=== PATIENT | female | born 1990 | race African-American/Black ===

== ENCOUNTER 2024-01-18 15:19 | Observation (INO) | payer OTHER ==
--- OUTSIDE RECORDS SUMMARY | 2024-01-18 15:23 | XMS REPORT | Continuity of Care Document ---
Author Name Unknown Address [address] [facility] [address] [place] [address] Organization [facility] Address [address] [facility] [address] [place] [address] Care Team Providers Care Sweatband Shaper Name Role Phone LESIA CARTER JR Primary Care Physician BETZAIDA Trujillo Attending Clinician Unavailable Betzaida Gregorio NP Attending Clinician [phone] TYE SORENSON Attending Clinician Unavailable TYE SORENSON Attending Clinician Unavailable [email or web address]_Kadiyala_S Attending Clinician Unavaila ble [email or web address]_Kadiyala_S Admitting Clinician UnavailBETZAIDA Lara Admitting Clinician Unavailable Payers Payer Name Policy Type Policy Number Effective Date Expirati on Date Source [facility] [employer] BENEFITS MANAGEMENT [id number] 2021 00:00:00 [facility] [id number] 2017 00:00:00 Problems Condition Name Condition Details Condition Category Status Onset Date Resolution Date Last Treatment Date Treating Clinician Comments Source No known active problems No known active problems Disease [facility] Menorrhagi a with regular cycle Menorrhagi a with regular cycle Problem [facility] Anemia due to chronic blood loss Anemia due to chronic blood loss Problem [facility] Tubal ligation status Tubal ligation status Problem Active [facility] Uterine leiomyoma, unspecifie d location Uterine leiomyoma, unspecifie d location Problem Active [facility] Dysmenorrh ea Dysmenorrh ea Problem Active [facility] Allergies, Adverse Reactions, Alerts Allergy Name Allergy Type Status Severity Reaction(s) Onset Date Inactive Date Treating Clinician Comments Source NO KNOWN ALLERGIE S Drug Class Active [facility] Social History Social Habit Start Date Stop Date Quantity Comments Source Sexual orientation [facility] Exposure to SARS-CoV-2 (event) 2021-11-30 00:00:00 2021-12-10 21:07:00 Not sure [facility] Sex Assigned At 1990 00:00:00 1990 00:00:00 [facility] Smoking Status Start Date Stop Date Source Tobacco smoking consumption unknown [facility] Medications Ordered Medication Name Filled Medication Name Start Date Stop Date Current Medication? Ordering Clinician Indication Dosage Frequency Signature (SIG) Comments Components Source ipratropium -albuteroL (DUONEB) 0.5 mg-3 mg(2.5 mg base)/3 mL nebulizer solution 3 mL 2022-03 15:45: 00 01-21 14:42 :00 No 3mL 3 mL, Inhalation , ONCE, 1 dose, [facility] 01/21/23 [facility] 0945[facility] al[facility]ol [facility] mcg/actuati on inhaler 2022-03 00:00: 00 Yes [id number] 2{puff} Inhale 2 Puffs every 4 (four) hours as needed for Wheezing or Shortness of Breath. [facility] ibuprofen 600 mg tablet 2022-03 00:00: 00 Yes [id number] 600mg Take 1 tablet by mouth every 6 (six) hours as needed for Pain (scale 4-6) for up to 30 doses. [facility] ibuprofen (IBU) tablet 800 mg 12-11 02:15: 00 12-11 02:11 :00 No 800mg 800 mg, Oral, ONCE, 1 dose, On 12/10/21 at 2115, DAREN [facility] No known medications 07-10 10:56: 39 No No known medication s [facility] Ferralet 90 Ferralet 90 05-15 00:00: 00 Yes Salvador Luke 1 tablet [facility] Mirena (52 MG) Mirena (52 MG) Yes Salvador Herrerai as directed [facility] Vital Signs Vital Name Observation Time Observation Value Comments S ource Systolic blood pressure 2023-04-12 17:26:00 144 mm[Hg] [facility] Diastolic blood pressure 2023-04-12 17:26:00 97 mm[Hg] [facility] Heart rate 2023-04-12 17:26:00 99 /min [facility] Body temperature 2023-04-12 17:26:00 37 Tessa [facility] Respiratory rate 2023-04-12 17:26:00 16 /min [facility] Body height 2023-04-12 17:26:00 180.3 cm [facility] Body weight 2023-04-12 17:26:00 113.399 kg [facility] BMI 2023-04-12 17:26:00 34.87 kg/m2 [facility] Oxygen saturation in Arterial blood by Pulse oximetry 2023-04-12 17:26:00 100 /min [facility] Heart rate 2023-01-21 14:54:00 110 /min [facility] Respiratory rate 2023-01-21 14:54:00 18 /min [facility] Oxygen saturation in Arterial blood by Pulse oximetry 2023-01-21 14:54:00 99 /min [facility] Body height 2023-01-21 14:22:00 180.3 cm [facility] Body weight 2023-01-21 14:22:00 108.863 kg [facility] BMI 2023-01-21 14:22:00 33.47 kg/m2 [facility] Systolic blood pressure 2023-01-21 14:22:00 143 mm[Hg] [facility] Diastolic blood pressure 2023-01-21 14:22:00 86 mm[Hg] [facility] Body temperature 2023-01-21 14:22:00 37.61 Tessa [facility] Systolic blood pressure 2021-12-11 02:04:00 147 mm[Hg] [facility] Diastolic blood pressure 2021-12-11 02:04:00 94 mm[Hg] [facility] Heart rate 2021-12-11 02:04:00 85 /min [facility] Body temperature 2021-12-11 02:04:00 37.17 Tessa [facility] Respiratory rate 2021-12-11 02:04:00 18 /min [facility] Oxygen saturation in Arterial blood by Pulse oximetry 2021-12-11 02:04:00 98 /min [facility] Procedures Procedure Date / Time Performed Performing Clinicia n Source ASSIGNMENT OF BENEFITS 2023-04-12 17:33:02 Docto r Unassigned, [place] [facility] CONSENT/REFUSAL FOR DIAGNOSIS AND TREATMENT 2023-04-12 17:21:14 Doctor Unassigned, [place] [facility] RAPID STREP SCREEN FOR GROUP A 2023-01-21 14:41:00 Tye Sorenson [facility] RAPID INFLUENZA A/B 2023-01-21 14:41:00 Tye Sorenson [facility] COVID-19 (ID NOW RAPID TESTING) 2023-01-21 14:41:00 Tye Sorenson [facility] NOTICE OF PRIVACY PRACTICES 2023-01-21 14:15:35 Doctor Unassigned, [place] [facility] CONSENT/REFUSAL FOR DIAGNOSIS AND TREATMENT 2023-01-21 14:14:47 Doctor Unassigned, [place] [facility] XR LUMBAR SPINE 3 VW 2021-12-11 02:24:56 Julia Gregorio [facility] POCT TEST 2021-12-11 02:13:00 Betzaida Gregorio [facility] NOTICE OF PRIVACY PRACTICES 2021-12-11 01:56:39 Doctor Unassigned, [place] [facility] CONSENT/REFUSAL FOR DIAGNOSIS AND TREATMENT 2021-12-11 01:56:05 Doctor Unassigned, [place] [facility] Encounters Start Date/Time End Date/Time Encounter Type Admission Type Attending [facility] Care Facility Care Department Encounter ID Source 2021-09-28 11:11:00 Outpatient [facility] [id number] 2021-07-07 09:01:00 Outpatient [facility] [id number] [facility] 2021-05-24 14:37:00 Outpatient [facility] [id number] [facility] 2023-04-12 11:27:00 2023-04-12 12:30:00 Emergency X BETZAIDA GREGORIO [facility] ERT [id number] [facility] 2023-04-12 11:27:00 2023-04-12 12:30:00 Emergency RustamfaisalBetzaida DEJIGNESH [facility] [id number] [facility] 2023-01-21 08:24:00 2023-01-21 10:34:00 Emergency X SORENSONTYE TIMOTHY [facility] ERT [id number] [facility] 2023-01-21 08:24:00 2023-01-21 10:34:00 Emergency Tye Sorenson [facility] [id number] [facility] 2023-01-04 00:00:00 2023-01-04 00:00:00 Outpatient GC_GCBZW_Ka diyala_S PRIV PRIV [id number] [facility] 2022-12-08 00:00:00 2022-12-08 00:00:00 Outpatient GC_GCBZW_Ka diyala_S PRIV PRIV [id number] [facility] 2022-10-22 00:00:00 2022-10-22 00:00:00 Outpatient GC_GCBZW_Ka diyala_S PRIV PRIV [id number] [facility] 2022-10-22 00:00:00 2022-10-22 00:00:00 Outpatient GC_GCBZW_Ka diyala_S PRIV PRIV [id number] [facility] 2022-10-22 00:00:00 2022-10-22 00:00:00 Outpatient GC_GCBZW_Ka diyala_S PRIV PRIV [id number] [facility] 2021-12-10 21:07:00 2021-12-10 22:44:00 Emergency X BETZAIDA GREGORIO ERT [id number] [facility] 2021-12-10 21:07:00 2021-12-10 22:44:00 Emergency Betzaida Gregorio [facility] [id number] [facility] 2018-07-09 11:00:00 2018-07-09 11:00:00 Outpatient [facility] [id number] [facility] 2018-07-03 15:15:00 2018-07-03 15:15:00 Outpatient [facility] [id number] [facility] 2017-07-19 10:30:00 2017-07-19 10:30:00 Outpatient [facility] [id number] [facility] 2017-07-02 14:00:00 2017-07-02 14:00:00 Outpatient [facility] [id number] [facility] Results Test Description Test Time Test Comments Results Result Co mments Source [facility] Notes Date/Time Note Provider Source 2023-04-12 12:30:06 Patient seen by practitioner and deemed non-emergent. Medical screening completed. Pt declined to stay. VSS, A&Ox4, no ataxia noted. [facility] 2023-04-12 11:25:08 Pt c/o low back pain/spasms x1.5 weeks. Took Ibuprofen yesterday. Denies injury/trauma. No loss of bowel/bladder function. Denies urinary complaints. TO Johnson RN [facility]
[2024-01-18 16:07] LABS: Absolute Basophils 0.1 K/uL (0-0.5); Absolute Eosinophils 0.1 K/uL (0-0.5); Absolute Lymphocytes (CBC) 1.8 K/uL (0.7-4.9); Absolute Monocytes 0.4 K/uL (0.1-1.3); Absolute Neutrophil 5.6 K/uL (1.8-8.0); Basophils % 0.9 % (0-1.3); Eosinophils % 1.6 % (0-4.4); Hemoglobin 6.6 g/dL (12.0-15.0); Lymphocytes % 22.5 % (15.3-44.8); MCHC 28.6 g/dL (32.0-36.0); MCV 55.7 fL (80-100); MPV 8.3 fL (7.6-11.3); Monocytes % 4.4 % (3.3-12.3); Neutrophils % 70.6 % (41.7-73.7); Platelets 268 thou/uL (152-406); RBC Red Blood Cell Count 4.13 M/uL (3.86-4.86); Red Cell Distribution Width 19.8 % (12.1-15.2)
[2024-01-18 16:36] LABS: Anion Gap 8.2 mEq/L (5.0-15.0); BUN Blood Urea Nitrogen 11 mg/dL (7-18); Bicarbonate 24 mEq/L (21-32); Glomerular Filtration Rate 89 ml/min (=/>90); Glucose Level 94 mg/dL (74-106); Potassium 3.2 mEq/L (3.5-5.1); Sodium Level 140 mEq/L (136-145); Thyroid Stimulating Hormone 0.674 uIU/mL (0.358-3.740)
[2024-01-18 16:39] LABS: Troponin High Sensitivity < 3.0 pg/mL (<58.9)
--- NOTE | 2024-01-18 16:59 | P.HP ---
Certification for Inpatient Patient admitted to: Observation With expected LOS: <2 Midnights Patient will require the following post-hospital care: None Practitioner: I am a practitioner with admitting privileges, knowledge of patient current condition, hospital course, and medical plan of care. Services: Services provided to patient in accordance with Admission requirements found in Title 42 Section 412.3 of the Code of Federal Regulations Patient History Date of Service: 01/18/24 Reason for admission: Symptomatic Iron deficiency anemia History of Present Illness: Yung Pantoja is a 33 year old female with Pmhx iron deficiency anemia, uterine fibroids, who presents to the ED from PCP office d/t abnormal H/H. She reports symptoms of dizziness, lightheadedness, and heart palpitations all of which she reports is common with her anemia. She reports seeing her doctor because she had diarrhea for two days, her lab work was drawn showing anemia and was recommended to come to the ED. She reports her menstration has started today and her lowest Hgb in the past has been 6.9. While in the ED, H/H 6.6/23.0, K 3.2, and ferritin 2.0. On evaluation, Yung is alert and oriented, in NAD, abdomen negative for tenderness. She denies fever, chills, Chest pain, and SOB. Initial vitals BP 147 / 81; Pulse 74; Resp 17; Temp 98(O); Pulse Ox 99% Yung will be admitted to hospitalist service for transfusion of 2 units PRBC. Allergies No Known Allergies Allergy (Unverified 04/08/17 12:14) - Past Medical/Surgical History -: Iron deficiency anemia -: Uterine fibroids -: section -: Tubal ligation -: Right knee surgery - Family History Family History: Reviewed- Non-Contributory - Social History Smoking Status: Never smoker Alcohol use: Yes CD- Drugs: No Review of Systems Cardiovascular: Palpitations Gastrointestinal: Diarrhea Neurological: Other (Dizziness) Physical Examination - Physical Exam General: Alert, In no apparent distress, Oriented x3 HEENT: Atraumatic, Normocephalic, PERRLA Neck: 2+ carotid pulse no bruit, JVD not distended Respiratory: Clear to auscultation bilaterally, Normal air movement Cardiovascular: No edema, Normal pulses, Regular rate/rhythm, Normal S1 S2 Capillary refill: <2 Seconds Gastrointestinal: Normal bowel sounds, Soft and benign Musculoskeletal: No clubbing Integumentary: No rashes Neurological: Normal speech, Normal tone - Studies Laboratory Data (last 24 hrs) 01/18/24 01/18/24 15:54 15:54 WBC 8.00 Hgb 6.6 L Hct 23.0 L Plt Count 268 Sodium 140 Potassium 3.2 L BUN 11 Creatinine 0.87 Glucose 94 Assessment and Plan - Plan Assessment and plan Symptomatic iron deficiency anemia Dizziness and heart palpations -Ferritin 2,H&H 6.09/07 -2 Units PRBC with lasix -Iron studies pending -Reports iron infusion in the past -Menstration today Hypokalemia -Potassium 3.2 -Expect replacement with 2 units packed red blood cells -monitor in AM labs Uterine fibroids -Continue outpatient follow-up DVT PPx SCDs Full code LOS 24-hour obs Discharge Plan: Home Plan to discharge in: 24 Hours - Advance Directives Does patient have a Living Will: No Does patient have a Durable POA for Healthcare: No
--- NOTE | 2024-01-18 17:13 | ER ---
Nurse's Notes [facility] Name: Yung Pantoja Age: 33 yrs Sex: Female : 1990 Arrival Date: 01/18/2024 Time: 15:19 Bed 13 Private MD: Diagnosis: Acute blood loss anemia - palpitations and dizziness;Chronic OMID;Hypokalemia Presentation: 01/17 16:18 Chief complaint: Patient states: palpitations intermittent since last week, +dizziness. iw Coronavirus screen: At this time, the client does not indicate any symptoms associated with coronavirus-19. Ebola Screen: No symptoms or risks identified at this time. Initial Sepsis Screen: Does the patient meet any 2 criteria? Does the patient have a suspected source of infection? No. Patient's initial sepsis screen is negative. Risk Assessment: Do you want to hurt yourself or someone else? Patient reports no desire to harm self or others. Onset of symptoms was January 10, 2024. 16:18 Method Of Arrival: Ambulatory iw 16:18 Acuity: MIL[place] 3 iw Historical: - Allergies: 16:19 No Known Allergies; iw - PMHx: 16:14 Anemia; Uterine fibroids; snw - PSHx: 16:19 right knee; section; tubal; iw - Immunization history:: Adult Immunizations up to date. - Infectious Disease History:: Denies. - Social history:: Smoking status: Patient denies any tobacco usage or history of. Screenin:30 [facility] ED Fall Risk Assessment (Adult) History of falling in the last 3 months, rs5 including since admission No falls in past 3 months (0 pts) Confusion or Disorientation No (0 pts) Intoxicated or Sedated No (0 pts) Impaired Gait No (0 pts) Mobility Assist Device Used No (0 pt) Altered Elimination No (0 pt) Score/Fall Risk Level 0 - 2 = Low Risk Oriented to surroundings, Maintained a safe environment. Abuse screen: Denies threats or abuse. Nutritional screening: No deficits noted. Tuberculosis screening: No symptoms or risk factors identified. Assessment: 15:30 General: Appears in no apparent distress. uncomfortable, Behavior is calm, cooperative. rs5 Pain: Denies pain. Neuro: Level of Consciousness is awake, alert, obeys commands, Oriented to person, place, time, situation. Cardiovascular: Patient's skin is warm and dry. Respiratory: Airway is patent Respiratory effort is even, unlabored, Respiratory pattern is regular, symmetrical. GI: Abdomen is round non-distended, Abd is soft and non tender X 4 quads. : Reports vaginal bleeding that is light flow. EENT: No signs and/or symptoms were reported regarding the EENT system. Derm: Skin is intact, Skin is pink, warm \T\ dry. Musculoskeletal: Range of motion: intact in all extremities. 16:37 Reassessment: Patient and/or family updated on plan of care and expected duration. Pain rs5 level reassessed. Patient is alert, oriented x 3, equal unlabored respirations, skin warm/dry/pink. 17:48 Reassessment: Patient and/or family updated on plan of care and expected duration. Pain rs5 level reassessed. Patient is alert, oriented x 3, equal unlabored respirations, skin warm/dry/pink. 18:20 Reassessment: Patient and/or family updated on plan of care and expected duration. Pain rs5 level reassessed. Patient is alert, oriented x 3, equal unlabored respirations, skin warm/dry/pink. Vital Signs: 16:18 BP 147 / 81; Pulse 74; Resp 17; Temp 98(O); Pulse Ox 99% ; rs5 17:01 BP 128 / 77; Pulse 74; Resp 17; Pulse Ox 99% on R/A; rs5 18:20 BP 134 / 84; Pulse 70; Resp 17; Pulse Ox 99% on R/A; rs5 ED Course: 15:23 Patient arrived in ED. ra3 15:23 Alexandra Hill [facility]C [facility] snw 15:23 Gilberto Perez MD is Attending Physician. snw 15:30 Patient has correct armband on for positive identification. Placed in gown. Bed in low rs5 position. Call light in reach. Side rails up X2. 15:30 Arm band placed on. iw 15:30 No provider procedures requiring assistance completed. rs5 15:30 Inserted saline lock: 20 gauge in right antecubital area, using aseptic technique. rs5 Blood collected. Flushed with 10 mL NS. 16:03 Fidel Cantrell, ANISH is Primary Nurse. rs5 16:19 Triage completed. iw 17:11 Thai Stubbs is Hospitalizing Provider. snw 18:36 Patient admitted, IV remains in place. iw Administered Medications: No medications were administered Medication: 18:36 VIS not applicable for this client. iw Outcome: 17:12 Decision to Hospitalize by Provider. snw 18:36 Admitted to Med/surg accompanied by nurse, via wheelchair, room 225, iw 18:36 Condition: good 18:36 Discharge instructions given to patient, Instructed on the need for admit, 18:37 Patient left the ED. iw Signatures: Alexandra Hill, SUPERVISOR ESTIMATOR AND DRAFTER-C SUPERVISOR ESTIMATOR AND DRAFTER-Csnw Kath Romero, RN RN iw Fidel Cantrell, RN RN rs5 Bri Chakraborty ra3 Corrections: (The following items were deleted from the chart) 18:20 18:20 BP 128 / 77; Pulse 74bpm; Resp 17bpm; Pulse Ox 99% RA; rs5 rs5
--- NOTE | 2024-01-18 17:13 | EDPHYS ---
Physician Documentation [facility] Name: Yung Pantoja Age: 33 yrs Sex: Female : 1990 Arrival Date: 01/18/2024 Time: 15:19 Bed 13 Private MD: ED Physician Gilberto Perez HPI: 01/17 16:16 This 33 yrs old Black Female presents to ER via Unassigned with complaints of Heart snw palpitations Sent by pcp. 16:16 The patient presents with a history of heart racing. Context: The symptoms occur with snw light activity, sent per Dr. Marisa moreland to anemia. No labs to view at hospital. Onset: The symptoms/episode began/occurred acutely. Duration: The patient or guardian reports multiple episodes. Severity of symptoms: At their worst the symptoms were moderate. The patient has experienced a previous episode. The patient has been recently seen by a physician: the patient's primary care provider, with similar presenting complaints, lab tests were done. sent to ED for anemia. Pt with hx of uterine fibroids, menorrhagia. LMP - started 1-2 days ago. Historical: - Allergies: 16:19 No Known Allergies; iw - PMHx: 16:14 Anemia; Uterine fibroids; snw - PSHx: 16:19 right knee; section; tubal; iw - Immunization history:: Adult Immunizations up to date. - Infectious Disease History:: Denies. - Social history:: Smoking status: Patient denies any tobacco usage or history of. ROS: 16:14 Eyes: Negative for injury, pain, redness, and discharge, ENT: Negative for injury, snw pain, and discharge, Neck: Negative for injury, pain, and swelling, 16:14 Abdomen/GI: Negative for abdominal pain, nausea, vomiting, diarrhea, and constipation, Back: Negative for injury and pain, : Negative for injury, bleeding, discharge, and swelling, MS/Extremity: Negative for injury and deformity, Skin: Negative for injury, rash, and discoloration, 16:14 Constitutional: Positive for fatigue, malaise, 16:14 Cardiovascular: Positive for palpitations, 16:14 Respiratory: Positive for shortness of breath, on exertion. 16:14 Neuro: Positive for dizziness, Exam: 16:12 Constitutional: This is a well developed, well nourished patient who is awake, alert, snw and in no acute distress. Head/Face: Normocephalic, atraumatic. ENT: Nares patent. No nasal discharge, no septal abnormalities noted. Tympanic membranes are normal and external auditory canals are clear. Oropharynx with no redness, swelling, or masses, exudates, or evidence of obstruction, uvula midline. Mucous membranes moist. Neck: Trachea midline, no thyromegaly or masses palpated, and no cervical lymphadenopathy. Supple, full range of motion without nuchal rigidity, or vertebral point tenderness. No Meningismus. Chest/axilla: Normal chest wall appearance and motion. Nontender with no deformity. No lesions are appreciated. Cardiovascular: Regular rate and rhythm with a normal S1 and S2. No gallops, murmurs, or rubs. Normal PMI, no JVD. No pulse deficits. Respiratory: Lungs have equal breath sounds bilaterally, clear to auscultation and percussion. No rales, rhonchi or wheezes noted. No increased work of breathing, no retractions or nasal flaring. Abdomen/GI: Soft, non-tender, with normal bowel sounds. No distension or tympany. No guarding or rebound. No evidence of tenderness throughout. Back: No spinal tenderness. No costovertebral tenderness. Full range of motion. Skin: Warm, dry with normal turgor. Normal color with no rashes, no lesions, and no evidence of cellulitis. MS/ Extremity: Pulses equal, no cyanosis. Neurovascular intact. Full, normal range of motion. Neuro: Awake and alert, GCS 15, oriented to person, place, time, and situation. Cranial nerves II-XII grossly intact. Motor strength 5/5 in all extremities. Sensory grossly intact. Cerebellar exam normal. Normal gait. Psych: Awake, alert, with orientation to person, place and time. Behavior, mood, and affect are within normal limits. 16:12 Eyes: Periorbital structures: mild exopthalmus, Conjunctiva: normal, 16:12 Special observations: EKG, rate 92, NSR, no ectopy, Vital Signs: 16:18 BP 147 / 81; Pulse 74; Resp 17; Temp 98(O); Pulse Ox 99% ; rs5 17:01 BP 128 / 77; Pulse 74; Resp 17; Pulse Ox 99% on R/A; rs5 18:20 BP 134 / 84; Pulse 70; Resp 17; Pulse Ox 99% on R/A; rs5 MDM: 15:24 Medical Screening Exam initiated snw 16:15 Differential diagnosis: arrythmia, dehydration, anemia, hyperthyroidism. Data reviewed: snw vital signs, nurses notes, lab test result(s). I considered the following discharge prescriptions or medication management in the emergency department Medications were administered in the Emergency Department. See MAR. Care significantly affected by the following chronic conditions: anemia. Counseling: I had a detailed discussion with the patient and/or guardian regarding the historical points, exam findings, and any diagnostic results supporting the discharge/admit diagnosis, lab results, radiology results. 16:46 Management of patient was discussed with the following: Hospitalist: would like to snw admit for obs for transfusion. 01/17 15:30 Order name: Basic Metabolic Panel; Complete Time: 16:41 snw 01/17 15:30 Order name: CBC with Diff; Complete Time: 19:17 w 01/17 15:30 Order name: TSH; Complete Time: 16:41 snw 01/17 15:30 Order name: Type And Screen count includes the [facility] 01/17 15:30 Order name: Ferritin; Complete Time: 16:41 snw 01/17 15:30 Order name: Troponin HS; Complete Time: 16:41 snw 01/17 16:33 Order name: Bb Add On w 01/17 16:41 Order name: PRBC count includes the [facility] 01/17 16:44 Order name: ABO/RH typing [facility] 01/17 16:44 Order name: Antibody Screen [facility] 01/17 17:04 Order name: ABO/RH no charge; Complete Time: 17:08 EDDE 01/17 17:15 Order name: Basic Metabolic Panel EDDE 01/17 17:15 Order name: Basic Metabolic Panel EDDE 01/17 17:15 Order name: CBC with Automated Diff EDMS 01/17 17:15 Order name: CBC with Automated Diff EDDE 01/17 17:15 Order name: Magnesium EDDE 01/17 17:15 Order name: Magnesium EDDE 01/17 17:15 Order name: Phosphorus EDDE 01/17 17:15 Order name: Phosphorus EDDE 01/17 17:16 Order name: Packed RBCs (Additional Unit) EDDE 01/17 17:19 Order name: Transferrin Sat/Iron Binding EDMS 01/17 17:19 Order name: Vitamin B12 Level EDMS 01/17 17:19 Order name: Vitamin D, 25 (OH), TOTAL EDMS 01/17 17:19 Order name: Vitamin D, 25 (OH), TOTAL EDMS 01/17 17:53 Order name: CBC Smear Scan; Complete Time: 19:17 EDMS 01/17 15:30 Order name: EKG; Complete Time: 15:30 snw 01/17 15:30 Order name: IV Saline Lock; Complete Time: 17:06 snw 01/17 15:30 Order name: Labs collected and sent; Complete Time: 17:06 snw 01/17 15:30 Order name: Consent for Blood Transfusion; Complete Time: 16:32 snw 01/17 15:30 Order name: IV Saline Lock; Complete Time: 16:32 snw 01/17 15:30 Order name: EKG - Nurse/Tech; Complete Time: 16:31 snw 01/17 15:30 Order name: O2 Per Protocol; Complete Time: 16:30 snw Administered Medications: No medications were administered Disposition Summary: 01/18/24 17:12 Hospitalization Ordered Notes: Hospitalization Status: Observation snw Provider: Thai Stubbs Location: Telemetry/MedSurg (observation) snw Condition: Stable snw Problem: an acute exacerbation snw Symptoms: have improved snw Bed/Room Type: Standard snw Room Assignment: 225(01/18/24 17:51) em1 Diagnosis - Acute blood loss anemia - palpitations and dizziness snw - Chronic OMID snw - Hypokalemia snw Forms: - Medication Reconciliation Form snw - SBAR form snw - Leadership Thank You Letter snw Signatures: Dispatcher [employer] EDMS Alexandra Hill, PLATE FINISHER-C PLATE FINISHER-Csnw Kath Romero, ANISH RN iw Maverick Gracia em1 Fidel Cantrell RN RN rs5 Corrections: (The following items were deleted from the chart) 15:31 15:30 BASIC METABOLIC PANEL+C.LAB.BRZ ordered. EDMS EDMS 15:31 15:30 CBC+H.LAB.BRZ ordered. EDMS EDMS 15:31 15:30 THYROID STIMULAT HORMONE+C.LAB.BRZ ordered. EDMS EDMS 15:31 15:30 TYPE AND SCREEN+BB.LAB.BRZ ordered. EDMS EDMS 15: 15:30 FERRITIN+C.LAB.BRZ ordered. EDMS EDMS 15:30 FERRITIN+C.LAB.BRZ ordered. EDMS EDMS 15:30 Troponin High Sensitivity+C.LAB.BRZ ordered. EDMS EDMS 17:27 17:12 snw iw 17:51 17:27 201 em1
[2024-01-18 17:51] LABS: Platelet Estimate ADEQ; White Blood Cell Scan OK (OK)
[2024-01-18 17:52] LABS: Anisocytosis 2+; Blood Morphology Comment NOTED (NOT SEEN); Poikilocytosis 2+
[2024-01-18 18:40] VITALS: O2SAT 99
[2024-01-18] MEDS: ACETAMINOPHEN 325 MG TABLET PO PRN (19:47)
[2024-01-18] MEDS: NA CHLORIDE 0.9% 1,000 ML IV SCH (19:47)
[2024-01-18] MEDS ORDERED: WATER FOR INJ,STERILE 10 ML ONE (21:53)
[2024-01-18] MEDS ORDERED: NA CHLORIDE 0.9% 250 ML ONE (21:54)
[2024-01-18] MEDS: HYDROCORTISONE SUC 100 MG INJ IV ONE (22:04)
[2024-01-18 22:21] VITALS: BMI 34.6
[2024-01-18] MEDS: IBUPROFEN 400 MG TAB PO ONE (23:32)
[2024-01-19] MEDS: FUROSEMIDE 20 MG/ 2ML VIAL ONE (01:43)
[2024-01-19] MEDS ORDERED: NA CHLORIDE 0.9% 250 ML ONE (01:43)
[2024-01-19] MEDS: FUROSEMIDE 20 MG/ 2ML VIAL IV ONE (01:54)
[2024-01-19 03:42] VITALS: BP 112/62; TEMP 97.2
[2024-01-19 09:37] LABS: Absolute Eosinophils 0.1 K/uL (0-0.5); Absolute Lymphocytes (CBC) 1.6 K/uL (0.7-4.9); Absolute Monocytes 0.4 K/uL (0.1-1.3); Absolute Neutrophil 5.5 K/uL (1.8-8.0); Basophils % 0.6 % (0-1.3); Eosinophils % 0.9 % (0-4.4); Hemoglobin 8.6 g/dL (12.0-15.0); MCH 18.8 pg (27.0-35.0); MCHC 30.8 g/dL (32.0-36.0); MCV 61.2 fL (80-100); MPV 8.5 fL (7.6-11.3); Monocytes % 5.8 % (3.3-12.3); Neutrophils % 71.7 % (41.7-73.7); Nucleated Red Blood Cells % 0.1 % (0-0); Platelets 254 thou/uL (152-406); RBC Red Blood Cell Count 4.58 M/uL (3.86-4.86); Red Cell Distribution Width 26.8 % (12.1-15.2)
[2024-01-19 09:52] LABS: Anion Gap 9.4 mEq/L (5.0-15.0); Magnesium 1.8 mg/dL (1.6-2.4); Phosphorus 2.6 mg/dL (2.5-4.9); Potassium 3.4 mEq/L (3.5-5.1)
--- NOTE | 2024-01-19 11:02 | P.DS ---
Admission Date: 01/18/24 Discharge Date: 01/19/24 Disposition: ROUTINE DISCHARGE Discharge Condition: GOOD Reason for Admission: Symptomatic Iron deficiency anemia Brief History of Present Illness: Diagnosis Symptomatic iron deficiency anemia Dizziness and heart palpations Hypokalemia Uterine fibroids HPI 01/19/2024 Yung Pantoja is a 33 year old female with Pmhx iron deficiency anemia, uterine fibroids, who presents to the ED from PCP office d/t abnormal H/H. She reports symptoms of dizziness, lightheadedness, and heart palpitations all of which she reports is common with her anemia. She reports seeing her doctor because she had diarrhea for two days, her lab work was drawn showing anemia and was recommended to come to the ED. She reports her menstration has started today and her lowest Hgb in the past has been 6.9. While in the ED, H/H 6.6/23.0, K 3.2, and ferritin 2.0. On evaluation, Yung is alert and oriented, in NAD, abdomen negative for tenderness. She denies fever, chills, Chest pain, and SOB. Initial vitals BP 147 / 81; Pulse 74; Resp 17; Temp 98(O); Pulse Ox 99% Yung will be admitted to hospitalist service for transfusion of 2 units PRBC. Hospital Course: Yung Pantoja is a pleasant 33 year old female with a past medical history significant for iron deficiency anemia and uterine fibroids who was admitted to the [facility] on 01/18/24 for Symptomatic OMID. Yung presented to the ED from the PCP office because of a drop in her H/H. Evaluation in the ED, H/H 6.6/23.0. She had reported the lowest hemoglobin she has had is 6.9. She has never required a blood transfusion but has been given iron infusions. 2 units packed red blood cells ordered and admission to the hospital for blood transfusion initiated. She reports starting her menstrual cycle yesterday (01/17). This morning (01/18), she reports dizziness and lightheadedness has resolved. She is ambulating independently with stability, hemodynamically stable, H/H 8.6/28.0, and tolerating p.o. diet. Evaluation of her iron level indicates iron deficiency anemia and she can continue iron p.o. outpatient with close management with her legal clerk. On 01/19/24, Yung was seen on morning rounds and deemed medically stable for discharge. Yung was discharged with instructions to schedule follow-up appointments with PCP and BELT LOOP CUTTER. Yung was provided prescriptions for iron. Physical Exam General: Alert and Oriented x3, NAD, conversing well HEENT: Atraumatic, Normocephalic, PERRLA Neck: 2+ carotid pulse no bruit, JVD not distended Respiratory: Clear to auscultation bilaterally, Normal air movement Cardiovascular: No edema, Normal pulses, RRR, Normal S1 S2 Capillary refill: <2 Seconds Gastrointestinal: Normal bowel sounds, Soft and benign on palpation, nondistended Musculoskeletal: No clubbing Integumentary: No rashes Neurological: Normal speech, Normal tone Vital Signs/Physical Exam: Temp Pulse Resp BP Pulse Ox 97.2 F 82 16 112/62 99 01/19/24 03:41 01/19/24 03:41 01/19/24 03:41 01/19/24 03:41 01/19/24 03:41 Laboratory Data at Discharge: WBC 7.70 thou/uL (4.3-10.9) 01/19/24 09:30 Hgb 8.6 g/dL (12.0-15.0) L D 01/19/24 09:30 Hct 28.0 % (36.0-45.0) L 01/19/24 09:30 Plt Count 254 thou/uL (152-406) 01/19/24 09:30 Sodium 139 mEq/L (136-145) 01/19/24 09:30 Potassium 3.4 mEq/L (3.5-5.1) L 01/19/24 09:30 BUN 13 mg/dL (7-18) 01/19/24 09:30 Creatinine 0.83 mg/dL (0.55-1.02) 01/19/24 09:30 Glucose 126 mg/dL (74-106) H 01/19/24 09:30 Phosphorus 2.6 mg/dL (2.5-4.9) 01/19/24 09:30 Magnesium 1.8 mg/dL (1.6-2.4) 01/19/24 09:30 Home Medications: Ferrous Sulfate 325 mg PO DAILY 30 Days #30 tab 01/19/24 New Medications: Ferrous Sulfate 325 mg PO DAILY 30 Days #30 tab Physician Discharge Instructions: 1. Please call and schedule a follow-up appointment with your PCP in 3-5 days - Please follow-up with your PCP for medication refills/adjustments -Status post 2 units PRBC with H&H 8.6/28.0 -Iron 17, saturation 4, ferritin 2 2. Please call and schedule a follow-up appointment with your legal clerk in 3- 5 days 3. Continue regular diet 4. activity restrictions 5. Return to the ED if symptoms worsen New medications Ferrous sulfate 325 mg p.o. daily Diet: Regular Activity: Ad ephraim Followup: Warren Cunningham MD [Primary Care Provider] -
--- NOTE | 2024-01-20 12:16 | EKG ---
Test Date: 2024-01-18 Test Time: 15:40:40 Architectural Sales Consultant: CARL MEASUREMENT RESULTS: Intervals: Rate: 92 DC: 128 QRSD: 80 QT: 372 QTc: 460 [place]: P: 59 DC: 128 QRS: 53 T: 30 INTERPRETIVE STATEMENTS: Normal sinus rhythm Normal ECG No previous ECG available for comparison Electronically Signed On 01-20-24 12:13:40 BEDSPREAD SEAMER by Elijah Guevara
== END 2024-01-19 12:32 | disposition home or self-care (01) ==
LOC: ER 15:19 → ERHOLD 17:10 → 2ND 17:51
PROVIDERS: ADMIT Internal Medicine; ATTEND Internal Medicine
PROC: 30233N1 Transfusion of Nonautologous Red Blood Cells into Peripheral Vein, Percutaneous Approach (ICD-10-PCS; principal; 2024-01-19)
DX: D50.9 Iron deficiency anemia, unspecified (principal); D25.9 Leiomyoma of uterus, unspecified; R19.7 Diarrhea, unspecified; R42 Dizziness and giddiness; R00.2 Palpitations; E87.6 Hypokalemia
CPT/HCPCS: 85025 ×2; 80048 ×2; 36415 ×2; 86900; 83735; 86850; 84100; 86901; 86920 ×2; 84443; 84484; 82728; 82607; 83540; 82306; 84466; 99285; 36430; J1940; J1720; P9016 ×2; J7050 ×2; J7030; 93005; G0378

== ENCOUNTER 2024-11-03 19:52 | Emergency (ER) | payer OTHER, SELFPAY ==
--- OUTSIDE RECORDS SUMMARY | 2024-11-03 19:56 | XMS REPORT | Continuity of Care Document ---
Author Name Unknown Address [address] [place] [address] [facility] [place] Address [address] [place] [address] Care Team Providers Care Interface Developer Name Role Phone Warren Cunningham Jr. Primary Care Physician [phone] Warren Cunningham Jr. Attending Clinician [phone] BETZAIDA JERONIMO Attending Clinician Unavailable Betzaida Jeronimo NP Attending Clinician [phone] TYE SORENSON Attending Clinician Unavailable TYE SORENSON Attending Clinician Unavailable [email or web address] Attending Clinician Unavailfox perea [email or web address] Admitting Clinician UnavailBETZAIDA Lara Admitting Clinician Unavailable Payers Payer Name Policy Type Policy Number Effective Date Expirati on Date Source [facility] [place] [employer] [id number] 2021 00:00:00 [facility] [id number] 2017 00:00:00 Problems Condition Name Condition Details Condition Category Status Onset Date Resolution Date Last Treatment Date Treating Clinician Comments Source No known active problems No known active problems Disease [facility] Menorrhagi a with regular cycle Menorrhagi a with regular cycle Problem Active [facility] Anemia due to chronic blood loss Anemia due to chronic blood loss Problem Active [facility] Tubal ligation status Tubal ligation status Problem Active [facility] Uterine leiomyoma, unspecifie d location Uterine leiomyoma, unspecifie d location Problem Active [facility] Dysmenorrh ea Dysmenorrh ea Problem Active [facility] Allergies, Adverse Reactions, Alerts Allergy Name Allergy Type Status Severity Reaction(s) Onset Date Inactive Date Treating Clinician Comments Source NO KNOWN ALLERGIE S Drug Class Active [facility] Social History Social Habit Start Date Stop Date Quantity Comments Source [facility] Possible [facility] Exposure to SARS-CoV-2 (event) 2021-11-30 00:00:00 2021-12-10 21:07:[address] [facility] Sex assigned at 1990 00:00:00 1990 00:00:[address] [facility] Smoking Status Start Date Stop Date Source Tobacco smoking consumption unknown [facility] Medications Ordered Medication Name Filled Medication Name Start Date Stop Date Current Medication? Ordering Clinician Indication Dosage Frequency Signature (SIG) Comments Components Source ipratropium -albuteroL (DUONEB) 0.5 mg-3 mg(2.5 mg base)/3 mL nebulizer solution 3 mL 2022-03 15:45: 00 01-21 14:42 :00 No 3mL 3 mL, Inhalation , ONCE, 1 dose, On Sat01/21/23 at 0945, DAREN [facility] albuterol 90 mcg/actuati on inhaler 2022-03 00:00: 00 Yes [id number] 2{puff} Inhale 2 Puffs every 4 (four) hours as needed for Wheezing or Shortness of Breath. [facility] ibuprofen 600 mg tablet 2022-03 00:00: 00 Yes [id number] 600mg Take 1 tablet by mouth every 6 (six) hours as needed for Pain (scale 4-6) for up to 30 doses. [facility] ibuprofen (IBU) tablet 800 mg 12-11 02:15: 00 12-11 02:11 :00 No 800mg 800 mg, Oral, ONCE, 1 dose, On 12/10/21 at 2115, DAREN [facility] No known medications 07-10 10:56: 39 No No known medication s [facility] Ferralet 90 Ferralet 90 05-15 00:00: 00 Yes Salvador Luke 1 tablet [facility] Mirena (52 MG) Mirena (52 MG) Yes Salvador Herrerai as directed [facility] Vital Signs Vital Name Observation Time Observation Value Comments S ource Systolic blood pressure 2023-04-12 17:26:00 144 mm[Hg] [facility] Diastolic blood pressure 2023-04-12 17:26:00 97 mm[Hg] [facility] Heart rate 2023-04-12 17:26:00 99 /min [facility] Body temperature 2023-04-12 17:26:[address] [facility] Respiratory rate 2023-04-12 17:26:00 16 /min [facility] Body height 2023-04-12 17:26:00 180.3 cm [facility] Body weight 2023-04-12 17:26:00 113.399 kg [facility] BMI 2023-04-12 17:26:00 34.87 kg/m2 [facility] Oxygen saturation in Arterial blood by Pulse oximetry 2023-04-12 17:26:00 100 /min [facility] Oxygen saturation in Arterial blood by Pulse oximetry 2023-01-21 14:54:00 99 /min [facility] Heart rate 2023-01-21 14:54:00 110 /min [facility] Respiratory rate 2023-01-21 14:54:00 18 /min [facility] Systolic blood pressure 2023-01-21 14:22:00 143 mm[Hg] [facility] Diastolic blood pressure 2023-01-21 14:22:00 86 mm[Hg] [facility] Body temperature 2023-01-21 14:22:[address] [facility] Body height 2023-01-21 14:22:00 180.3 cm [facility] Body weight 2023-01-21 14:22:00 108.863 kg [facility] BMI 2023-01-21 14:22:00 33.47 kg/m2 [facility] Systolic blood pressure 2021-12-11 02:04:00 147 mm[Hg] [facility] Diastolic blood pressure 2021-12-11 02:04:00 94 mm[Hg] [facility] Heart rate 2021-12-11 02:04:00 85 /min [facility] Body temperature 2021-12-11 02:04:00 37.17 [facility] Respiratory rate 2021-12-11 02:04:00 18 /min [facility] Oxygen saturation in Arterial blood by Pulse oximetry 2021-12-11 02:04:00 98 /min [facility] Procedures Procedure Date / Time Performed Performing Clinicia n Source ASSIGNMENT OF BENEFITS 2023-04-12 17:33:02 Docto r Unassigned, [place] [facility] CONSENT/REFUSAL FOR DIAGNOSIS AND TREATMENT 2023-04-12 17:21:14 Doctor Unassigned, [place] [facility] RAPID STREP SCREEN FOR GROUP A 2023-01-21 14:41:[address] [facility] RAPID INFLUENZA A/B 2023-01-21 14:41:[address] [facility] COVID-19 (ID NOW RAPID TESTING) 2023-01-21 14:41:[address] [facility] NOTICE OF PRIVACY PRACTICES 2023-01-21 14:15:35 Doctor Unassigned, [place] [facility] CONSENT/REFUSAL FOR DIAGNOSIS AND TREATMENT 2023-01-21 14:14:47 Doctor Unassigned, [place] [facility] XR LUMBAR SPINE 3 VW 2021-12-11 02:24:[address] [facility] POCT TEST 2021-12-11 02:13:[address] [facility] NOTICE OF PRIVACY PRACTICES 2021-12-11 01:56:39 Doctor Unassigned, [place] [facility] CONSENT/REFUSAL FOR DIAGNOSIS AND TREATMENT 2021-12-11 01:56:05 Doctor Unassigned, [place] [facility] Encounters Start Date/Time End Date/Time Encounter Type Admission Type Attending [facility] Care Department Encounter ID Source 2024-06-03 15:12:00 Outpatient [facility] [id number] [facility] 2024-04-21 13:01:00 Outpatient [facility] [id number] [facility] 2021-09-28 11:11:00 Outpatient [facility] [id number] [facility] 2021-07-07 09:01:00 Outpatient [facility] [id number] [facility] 2021-05-24 14:37:00 Outpatient [facility] [id number] [facility] 2024-11-03 00:00:00 2024-11-03 09:01:49 Letter (Out) Warren Cunningham [facility] [id number] [facility] 2023-04-12 11:27:00 2023-04-12 12:30:00 Emergency X BETZAIDA JERONIMO [facility] ERT [id number] [facility] 2023-04-12 11:27:00 2023-04-12 12:30:00 Emergency Betzaida Jeronimo [facility] [id number] [facility] 2023-01-21 08:24:00 2023-01-21 10:34:00 Emergency X TYE SORENSON TIMOTHY [facility] ERT [id number] [facility] 2023-01-21 08:24:00 2023-01-21 10:34:00 Emergency Tye Sorenson [facility] [id number] [facility] 2021-12-10 21:07:00 2021-12-10 22:44:00 Emergency X BETZAIDA JERONIMO [facility] ERT [id number] [facility] 2021-12-10 21:07:00 2021-12-10 22:44:00 Emergency Betzaida Jeronimo [facility] [id number] [facility] 2018-07-09 11:00:00 2018-07-09 11:00:00 [facility] [id number] [facility] 2018-07-03 15:15:00 2018-07-03 15:15:00 [facility] [id number] [facility] 2017-07-19 10:30:00 2017-07-19 10:30:00 Outpatient [facility] [id number] [facility] 2017-07-02 14:00:00 2017-07-02 14:00:00 [facility] [id number] [facility] Results Test Description Test Time Test Comments Results Result Co mments Source [facility] Notes Date/Time Note Provider Source 2023-04-12 12:30:06 Patient seen by practitioner and deemed non-emergent. Medical screening completed. Pt declined to stay. VSS, A&Ox4, no ataxia noted. GER CARDIOVASCULAR [facility] 2023-04-12 11:25:08 Pt c/o low back pain/spasms x1.5 weeks. Took Ibuprofen yesterday. Denies injury/trauma. No loss of bowel/bladder function. Denies urinary complaints. TO Johnson RN [facility]
[2024-11-03 20:28] LABS: Absolute Lymphocytes (CBC) 2.0 K/uL (0.7-4.9)
[2024-11-03 20:34] LABS: Hematocrit 19.9 % (36.0-45.0); MCH 15.0 pg (27.0-35.0); MCHC 28.9 g/dL (32.0-36.0); MCV 52.0 fL (80-100); MPV 8.5 fL (7.6-11.3); Nucleated RBC Absolute Count 0.0 (0-0); Nucleated Red Blood Cells % 0.0 % (0-0); RBC Red Blood Cell Count 3.82 M/uL (3.86-4.86); White Blood Count 7.00 thou/uL (4.3-10.9)
[2024-11-03 20:37] LABS: Hemoglobin 5.7 g/dL (12.0-15.0)
[2024-11-03 20:43] LABS: Anion Gap 8.9 mEq/L (5.0-15.0); BUN Blood Urea Nitrogen 8.0 mg/dL (7-18); Glucose Level 112.0 mg/dL (74-106); Potassium 2.9 mEq/L (3.5-5.1)
[2024-11-03] MEDS ORDERED: POTASSIUM 25 MEQ EFFERV TAB ONE (20:59)
[2024-11-03] MEDS ORDERED: NA CHLORIDE 0.9% 250 ML ONE ×2 (21:15→23:48)
[2024-11-03 21:22] LABS: White Blood Cell Scan OK (OK)
[2024-11-03 21:23] LABS: Anisocytosis 1+; Blood Morphology Comment NOTED (NOT SEEN); Hypochromasia 3+; Microcytosis 3+; Poikilocytosis 1+
[2024-11-03 21:24] LABS: Ovalocytes SLIGHT; Teardrop Cell FEW
--- NOTE | 2024-11-04 02:00 | EDPHYS ---
Physician Documentation [facility] Name: Yung Pantoja Age: 34 yrs Sex: Female : 1990 Arrival Date: 11/03/2024 Time: 19:52 Bed IW9 Private MD: Warren Cunningham ED Physician Umer Aden HPI: 11/03 22:46 This 34 yrs old Black Female presents to ER via Ambulatory with complaints of Abnormal kb Lab Results. 22:46 Pt is a 34 year old female who presents for low hemoglobin. States she has heavy kb periods due to fibroids and has had to have multiple blood transfusions in the past. Patient had labs done by Dr. Pereira yesterday and her hemoglobin was 5.8. Dr. Cunningham and called her and told her to come to the ER for evaluation and transfusion. States she just got a referral to a wooden box maker from him so that she can go and start the process to have a hysterectomy.. VP RESPIRATORY: 20:08 LMP 11/01/2024, unknown me1 Historical: - Allergies: 20:08 No Known Allergies; me1 - PMHx: 20:08 Anemia; uterine fibroids; me1 - PSHx: 20:08 section; right knee; Ligation of fallopian tube; me1 - Immunization history:: Adult Immunizations up to date. - Infectious Disease History:: Denies. - Social history:: Smoking status: Patient reports the use of cigarette tobacco products, denies chronic smoking, but will smoke occasionally. ROS: 22:46 Constitutional: As per HPI kb Exam: 22:46 Constitutional: This is a well developed, well nourished patient who is awake, alert, kb and in no acute distress. Head/Face: Normocephalic, atraumatic. ENT: Moist Mucous membranes Cardiovascular: Regular rate Respiratory: Respirations even and unlabored. No increased work of breathing. Talking in full sentences Abdomen/GI: Soft, non-tender. No distention Skin: Warm, dry with normal turgor. Normal color. MS/ Extremity: Pulses equal, no cyanosis. Neurovascular intact. Full, normal range of motion. Neuro: Awake and alert, GCS 15, oriented to person, place, time, and situation. Vital Signs: 20:05 BP 142 / 75; Pulse 90; Resp 18; Temp 98.3; Pulse Ox 100% ; Weight 116.12 kg; Height 5 me1 ft. 11 in. ; Pain 0/10; 20:30 BP 125 / 66; Pulse 89; Resp 16; Pulse Ox 100% ; me1 21:00 BP 117 / 61; Pulse 85; Resp 16; Pulse Ox 100% ; me1 22:00 BP 115 / 59; Pulse 90; Resp 17; Pulse Ox 100% ; me1 22:49 BP 121 / 68; Pulse 77; Resp 18; Pulse Ox 99% on R/A; Pain 0/10; tb4 11/04 00:15 BP 121 / 64; Pulse 86; Resp 19; Temp 97.9(O); Pulse Ox 100% on R/A; Pain 0/10; tb4 01:00 BP 118 / 65; Pulse 83; Resp 18; Temp 97.7(O); Pulse Ox 100% on R/A; Pain 0/10; tb4 02:10 BP 114 / 60; Pulse 86; Resp 19; Temp 97.5(O); Pulse Ox 100% on R/A; Pain 0/10; tb4 03:10 BP 124 / 65; Pulse 91; Resp 18; Temp 98.2; Pulse Ox 100% on R/A; Pain 0/10; tb4 04:00 BP 119 / 56; Pulse 86; Resp 19; Temp 97.4(O); Pulse Ox 100% on R/A; tb4 11/03 20:05 Body Mass Index 35.70 (116.12 kg, 180.34 cm) md1 11/03 20:05 Pain Scale: Adult md1 22:49 Pain Scale: Adult tb4 11/04 00:15 Pain Scale: Adult tb4 01:00 Pain Scale: Adult tb4 02:10 Pain Scale: Adult tb4 03:10 Pain Scale: Adult tb4 MDM: 11/03 19:57 Medical Screening Exam initiated kb 23:33 Data reviewed: vital signs, nurses notes. kb 23:33 Differential diagnosis: anemia, abnormal electrolytes, dehydration. Consideration of kb Admission/Observation Escalation of care including admission/observation considered. admission considered but pt has history of heavy periods and has had to have blood transfusions in the past for similar symptoms. Pt has plan for outpatient follow up. . Counseling: I had a detailed discussion with the patient and/or guardian regarding the historical points, exam findings, and any diagnostic results supporting the discharge/admit diagnosis, lab results, the need for outpatient follow up, an OB/Gyne specialist, to return to the emergency department if symptoms worsen or persist or if there are any questions or concerns that arise at home. 11/03 20:02 Order name: CBC with Diff; Complete Time: 21:25 kb 11/03 20:02 Order name: BMP; Complete Time: 20:53 kb 11/03 20:02 Order name: Type And Screen kb 11/03 20:51 Order name: Packed RBC Leukored [facility] 11/03 21:24 Order name: CBC Smear Scan; Complete Time: 21:25 [facility] 11/03 22:11 Order name: Antibody Identification [facility] 11/03 22:53 Order name: Antigen type [facility] 11/03 20:02 Order name: IV Start; Complete Time: 20:22 kb Administered Medications: 21:01 Drug: Potassium PO Effervescent Tablet 50 mEq PO once; dissolve in 4 ounces of water or me1 juice Route: PO; 23:18 Follow up: Response: No adverse reaction tb4 Disposition: 11/04 01:34 Co-signature as Attending Physician, Umer Aden MD I agree with the assessment sp4 and plan of care. I reviewed the patient's care provided by the Advanced Practice Provider and agree with the diagnosis and treatment plan. Disposition Summary: 11/04/24 01:59 Discharge Ordered Notes: Location: Home kb Condition: Stable kb Diagnosis - Anemia, unspecified kb Followup: kb - With: Emergency Department - When: As needed - Reason: Worsening of condition Followup: kb - With: Private Physician - When: 2 - 3 days - Reason: Recheck today's complaints, Continuance of care, Re-evaluation by your physician Discharge Instructions: - Discharge Summary Sheet kb - Anemia kb - Blood Transfusion, Adult, Care After, [id number] kb Forms: - Medication Reconciliation Form kb - Antibiotic Education kb - Prescription Opioid Use kb - Patient Portal Instructions kb - Leadership Thank You Letter kb Critical care time excluding procedures: 01:42 Critical care time: Bedside Care: 16 minutes, Consultation: 15 minutes. Total time: 31 kb minutes Signatures: Dispatcher [employer] [facility] Peggy Zamudio FNP-C FNP-Ckb Potepalov, Sergey, MD MD sp4 Ivania Miller RN RN me1 Lulú Stanley RN tb4 Corrections: (The following items were deleted from the chart) 11/03 20:08 20:08 PSHx: tubal; me1 me1
--- NOTE | 2024-11-04 02:00 | ER ---
Nurse's Notes [facility] Name: Yung Pantoja Age: 34 yrs Sex: Female : 1990 Arrival Date: 11/03/2024 Time: 19:52 Bed IW9 Private MD: Warren Cunningham Diagnosis: Anemia, unspecified Presentation: 11/03 20:05 Chief complaint: Patient states: sent by Dr Cunningham for hgb of 5.6 yesterday. Reports me1 she has fibroids and heavy periods causing her anemia. Coronavirus screen: Vaccine status: Patient reports receiving the 2nd dose of the covid vaccine. Ebola Screen: No symptoms or risks identified at this time. Initial Sepsis Screen: Does the patient meet any 2 criteria? HR > 90 bpm. No. Patient's initial sepsis screen is negative. Does the patient have a suspected source of infection? No. Patient's initial sepsis screen is negative. Risk Assessment: Do you want to hurt yourself or someone else? Patient reports no desire to harm self or others. Onset of symptoms is unknown. 20:05 Method Of Arrival: Ambulatory [facility] 20:05 Acuity: [place] 3 me1 Triage Assessment: 20:08 General: Appears in no apparent distress. well groomed, well developed, well nourished, me1 Behavior is calm, cooperative, appropriate for age. Pain: Denies pain. EENT: No signs and/or symptoms were reported regarding the EENT system. Neuro: Level of Consciousness is awake, alert, obeys commands, Oriented to person, place, time, situation, Appropriate for age. Cardiovascular: Reports fast heart beat Patient's skin is warm and dry. Respiratory: Airway is patent Respiratory effort is even, unlabored, Respiratory pattern is regular, symmetrical. Respiratory: Reports shortness of breath on exertion. GI: No signs and/or symptoms were reported involving the gastrointestinal system. : Reports vaginal bleeding that is heavy flow. Derm: Skin is intact, is healthy with good turgor, Skin is normal. Musculoskeletal: No signs and/or symptoms reported regarding the musculoskeletal system. Circulation, motion, and sensation intact. Range of motion:. [employer]: 20:08 LMP 11/01/2024, unknown me1 Historical: - Allergies: 20:08 No Known Allergies; me1 - PMHx: 20:08 Anemia; uterine fibroids; me1 - PSHx: 20:08 section; right knee; Ligation of fallopian tube; me1 - Immunization history:: Adult Immunizations up to date. - Infectious Disease History:: Denies. - Social history:: Smoking status: Patient reports the use of cigarette tobacco products, denies chronic smoking, but will smoke occasionally. Screenin:10 [facility] ED Fall Risk Assessment (Adult) History of falling in the last 3 months, me1 including since admission No falls in past 3 months (0 pts) Confusion or Disorientation No (0 pts) Intoxicated or Sedated No (0 pts) Impaired Gait No (0 pts) Mobility Assist Device Used No (0 pt) Altered Elimination No (0 pt) Score/Fall Risk Level 0 - 2 = Low Risk Maintained a safe environment, Provided non-skid footwear, Hourly rounding (assess needs \T\ fall precautionary measures) done. Abuse screen: Denies threats or abuse. Nutritional screening: No deficits noted. Tuberculosis screening: No symptoms or risk factors identified. 22:59 [facility] ED Fall Risk Assessment (Adult) History of falling in the last 3 months, tb4 including since admission No falls in past 3 months (0 pts) Confusion or Disorientation No (0 pts) Intoxicated or Sedated No (0 pts) Impaired Gait No (0 pts) Mobility Assist Device Used No (0 pt) Altered Elimination No (0 pt) Score/Fall Risk Level 0 - 2 = Low Risk Oriented to surroundings, Maintained a safe environment. Abuse screen: Denies threats or abuse. Denies injuries from another. Nutritional screening: No deficits noted. Tuberculosis screening: No symptoms or risk factors identified. Assessment: 20:10 Reassessment: See triage assessment. nj1 22:49 Reassessment: Patient is alert, oriented x 3, equal unlabored respirations, skin tb4 warm/dry/pink. General: Appears in no apparent distress. Behavior is calm, cooperative. Pain: Denies pain. Neuro: Level of Consciousness is awake, alert, obeys commands, Oriented to person, place, time, situation, Rn Radiology are equal bilaterally Moves all extremities. Full function Gait is steady, Speech is normal, Facial symmetry appears normal. Respiratory: Airway is patent Trachea midline Respiratory effort is even, unlabored, Respiratory pattern is regular, symmetrical. GI: No signs and/or symptoms were reported involving the gastrointestinal system. : No signs and/or symptoms were reported regarding the genitourinary system. EENT: No signs and/or symptoms were reported regarding the EENT system. Derm: Skin is intact, is healthy with good turgor, Skin is moist, Skin is normal, Skin temperature is warm. Musculoskeletal: 11/04 00:38 Reassessment: First unit of PRBC started at 0020 at 25ml/hr, then increased to tb4 125ml/hr. Patient is stable at this time. Patient denies pain at this time. 02:30 Reassessment: 1st unit of PRBC completed at 0215, patient remains stable, no s/s of tb4 distress noted will continue monitor. Neuro: Level of Consciousness is awake, alert, obeys commands, Oriented to person, place, time, situation, Rn Radiology are equal bilaterally Moves all extremities. Full function Gait is steady, Speech is normal, Facial symmetry appears normal. Respiratory: Airway is patent Trachea midline Respiratory effort is even, unlabored, Respiratory pattern is regular, symmetrical. 04:27 Reassessment: Patient was given two units of blood, alert and oriented x3 no s/s of tb4 distress noted, vitals table. Vital Signs: 11/03 20:05 BP 142 / 75; Pulse 90; Resp 18; Temp 98.3; Pulse Ox 100% ; Weight 116.12 kg; Height 5 me1 ft. 11 in. ; Pain 0/10; 20:30 BP 125 / 66; Pulse 89; Resp 16; Pulse Ox 100% ; me1 21:00 BP 117 / 61; Pulse 85; Resp 16; Pulse Ox 100% ; me1 22:00 BP 115 / 59; Pulse 90; Resp 17; Pulse Ox 100% ; me1 22:49 BP 121 / 68; Pulse 77; Resp 18; Pulse Ox 99% on R/A; Pain 0/10; tb4 11/04 00:15 BP 121 / 64; Pulse 86; Resp 19; Temp 97.9(O); Pulse Ox 100% on R/A; Pain 0/10; tb4 01:00 BP 118 / 65; Pulse 83; Resp 18; Temp 97.7(O); Pulse Ox 100% on R/A; Pain 0/10; tb4 02:10 BP 114 / 60; Pulse 86; Resp 19; Temp 97.5(O); Pulse Ox 100% on R/A; Pain 0/10; tb4 03:10 BP 124 / 65; Pulse 91; Resp 18; Temp 98.2; Pulse Ox 100% on R/A; Pain 0/10; tb4 04:00 BP 119 / 56; Pulse 86; Resp 19; Temp 97.4(O); Pulse Ox 100% on R/A; tb4 11/03 20:05 Body Mass Index 35.70 (116.12 kg, 180.34 cm) me1 11/03 20:05 Pain Scale: Adult me1 22:49 Pain Scale: Adult tb4 11/04 00:15 Pain Scale: Adult tb4 01:00 Pain Scale: Adult tb4 02:10 Pain Scale: Adult tb4 03:10 Pain Scale: Adult tb4 ED Course: 11/03 19:56 Patient arrived in ED. gm2 19:57 Warren Cunningham MD is Private Physician. gm2 19:57 [facility]C [facility] kb 19:57 Umer Aden MD is Attending Physician. kb 20:05 Ivania Miller, ANISH is Primary Nurse. me1 20:08 Triage completed. me1 20:08 Arm band placed on Patient placed in an exam room. me1 20:10 Patient has correct armband on for positive identification. Bed in low position. Call me1 light in reach. Side rails up X 1. Provided Education on: POC. Verbalized understanding.. Client placed on continuous cardiac and pulse oximetry monitoring. NIBP monitoring applied. Pulse ox on. NIBP on. 20:10 No provider procedures requiring assistance completed. me1 20:22 Inserted saline lock: 20 gauge in right antecubital area, using aseptic technique. ts3 Blood collected. Flushed with 10 mL NS. 20:22 Initial lab(s) drawn, by flower shop laborer/designer, sent to lab. ts3 22:59 Patient has correct armband on for positive identification. Call light in reach. Client tb4 placed on continuous cardiac and pulse oximetry monitoring. NIBP monitoring applied. Pulse ox on. Door closed. 11/04 00:25 Provided Education on: Blood Transfusion, Patient will be given two units. tb4 04:31 IV discontinued, intact, bleeding controlled, No redness/swelling at site. Pressure tb4 dressing applied. Administered Medications: 11/03 21:01 Drug: Potassium PO Effervescent Tablet 50 mEq PO once; dissolve in 4 ounces of water or me1 juice Route: PO; 23:18 Follow up: Response: No adverse reaction tb4 Medication: 20:10 VIS not applicable for this client. me1 11/04 04:27 Blood products: PRBCs X 2 units given. tb4 Outcome: 01:59 Discharge ordered by MD. calhoun 04:30 Discharged to home ambulatory, tb4 04:30 Condition: stable 04:30 Discharge instructions given to patient, Instructed on discharge instructions, follow up and referral plans. Demonstrated understanding of instructions, follow-up care, 04:31 Patient left the ED. tb4 Signatures: Peggy Zamudio, NUTRITION THERAPIST-C NUTRITION THERAPIST-Ivania Awad, RN RN me1 Danielle Hummel 2 Lulú Stanley RN RN tb4 Vanesa Kennedy ts3 Corrections: (The following items were deleted from the chart) 11/03 20:08 20:08 PSHx: tubal; me1 me1
[2024-11-04 08:30] VITALS: O2SAT 100
[2024-11-04 08:38] VITALS: BP 119/56; TEMP 97.4
== END 2024-11-04 04:31 | disposition home or self-care (01) ==
LOC: ER 19:52
PROC: 30233N1 Transfusion of Nonautologous Red Blood Cells into Peripheral Vein, Percutaneous Approach (ICD-10-PCS; principal; 2024-11-03)
DX: D64.9 Anemia, unspecified (principal)
CPT/HCPCS: 36415; 80048; 85025; 86850; 86870; 86900; 86901; 86902; 86920; 86922; J7050; P9016